=== PATIENT | male | born 1940 | race Caucasian/White ===

== ENCOUNTER → 2017-12-25 | Outpatient (CLI) | payer OTHER | END | disposition home or self-care (01) | LOC: SHCH 11:18 | PROVIDERS: ATTEND Internal Medicine Cardiovascular Disease | DX: I48.0 Paroxysmal atrial fibrillation (principal); I10 Essential (primary) hypertension | CPT/HCPCS: 93306 ==

== ENCOUNTER 2018-02-25 06:48 | Observation (INO) | payer OTHER ==
[2018-02-17 09:30] VITALS: BP 100/58
[2018-02-17 09:54] LABS: BASOPHILS % (AUTO) 1.1 % (0.0-5.0); EOSINOPHILS % (AUTO) 5.7 % (0.0-8.0); HEMATOCRIT 36.5 % (42-54); LYMPHOCYTES % (AUTO) 43.3 % (21.0-51.0); MEAN CORPUSCULAR HEMOGLOBIN 31.2 pg (27.0-33.0); MEAN CORPUSCULAR HGB CONC 33.9 g/dL (32.0-36.0); MEAN CORPUSCULAR VOLUME 92.1 fL (79-99); MONOCYTES % (AUTO) 7.6 % (3.0-13.0); NEUTROPHILS % (AUTO) 42.3 % (40.0-77.0); PLATELET COUNT (AUTO) 192 K/uL (130-400); RED BLOOD CELL COUNT(AUTO) 3.97 MIL/uL (4.50-6.20); RED CELL DISTRIBUTION WIDTH 13.5 % (11.0-15.5); WHITE BLOOD COUNT (AUTO) 6.8 K/uL (4.8-10.8)
[2018-02-17 10:00] LABS: CREATININE 1.1 mg/dL (0.5-1.5)
[2018-02-17 10:21] LABS: INR 0.96 (0.85-1.15); PARTIAL THROMBOPLASTIN TIME 27.3 SEC (26.3-35.5); PROTHROMBIN TIME 10.1 SEC (9.6-11.6)
[~2018-02-25] VITALS: Ht 175.3 cm; Wt 91.2 kg
[2018-02-25] VITALS (11 sets, daily range): BP systolic 89–112; BP diastolic 50–75
[~2018-02-25 06:48] MED LIST: APIX5TAB PO; ATOR40TA71 PO; DIGO125T87 PO; FINA5TAB41 PO; FURO40TA5 PO; METO50TA18 PO; OMEP20CA10 PO; POTA-79 PO; SACU1TAB PO; UBID300C PO
[2018-02-25] MEDS ORDERED: SODIUM CHLORIDE 0.9% 1000ML 1,000 ML IV ONE (07:15)
[2018-02-25] MEDS ORDERED: BUPIVACAINE/PF 0.25% 30ML VIAL IJ ONE (08:01)
[2018-02-25] MEDS ORDERED: LIDOCAINE HCL 1% MDV 50ML VIAL ONE (08:01)
[2018-02-25] MEDS ORDERED: CEFAZOLIN SODIUM 1 GM VIAL ONE (08:02)
[2018-02-25] MEDS ORDERED: MEPERIDINE-PF 25 MG/ML SYG ONE ×3 (08:26→09:16)
[2018-02-25] MEDS ORDERED: MIDAZOLAM HCL 1 MG/ML 2ML VIAL ONE ×3 (08:26→09:16)
[2018-02-25] MEDS ORDERED: IODIXANOL 320 MG/ML 100 ML VIAL ONE (08:31)
[2018-02-25] MEDS ORDERED: ACETAMINOPHEN-CODEINE 300/30MG TAB PO PRN ×2 (11:00)
[2018-02-25] MEDS ORDERED: ACETAMINOPHEN 325 MG TAB PO PRN (11:00)
[2018-02-25] MEDS: METOPROLOL TARTRATE 50 MG TAB PO SCH (19:59)
[2018-02-25] MEDS ORDERED: DIGOXIN 125 MCG TABLET PO SCH (21:00)
[2018-02-25] MEDS ORDERED: PANTOPRAZOLE SODIUM 40 MG TABLET.DR PO SCH (21:00)
[2018-02-25] MEDS ORDERED: **HM** ENTRESTO 24-26MG PO SCH (21:00)
[2018-02-25] MEDS ORDERED: ATORVASTATIN CALCIUM 40 MG TABLET PO SCH (21:00)
[2018-02-26 07:40] VITALS: BP 129/63
[2018-02-26] MEDS ORDERED: FINASTERIDE 5 MG TABLET PO SCH (09:00)
[2018-02-26] MEDS ORDERED: FUROSEMIDE 40 MG TABLET PO SCH (09:00)
[2018-02-26] MEDS ORDERED: POTASSIUM CHLORIDE 20 MEQ ERTAB PO SCH (09:00)
[2018-02-26] MEDS: METOPROLOL TARTRATE 50 MG TAB PO SCH (10:13)
[2018-02-26 11:34] VITALS: BP 120/66
== END 2018-02-26 12:15 | disposition home or self-care (01) ==
LOC: DAH 06:48 → DAHIP 06:49 → 2AH 11:28
PROVIDERS: ADMIT Internal Medicine Cardiovascular Disease; ATTEND Internal Medicine Cardiovascular Disease
DX: I50.22 Chronic systolic (congestive) heart failure (principal); I48.91 Unspecified atrial fibrillation; I48.92 Unspecified atrial flutter; I42.9 Cardiomyopathy, unspecified; E78.5 Hyperlipidemia, unspecified; I49.5 Sick sinus syndrome; Z87.891 Personal history of nicotine dependence; Z82.49 Family history of ischemic heart disease and other diseases of the circulatory system; Z79.899 Other long term (current) drug therapy
CPT/HCPCS: 33225; 33233; 33249; 36415; 71045; 80048; 85025; 85610; 85730; 93005; A4606; C1769; C1882; C1895; C1900; G0378 ×29; J0690; J2175 ×3; J2250 ×3; J3490 ×2; J7030; Q9967; 99156; 99157

== ENCOUNTER 2018-03-26 08:44 | Day surgery (SDC) | payer OTHER ==
[2018-03-24 10:12] LABS: HEMATOCRIT 36.9 % (42-54); MEAN CORPUSCULAR HEMOGLOBIN 31.4 pg (27.0-33.0); MEAN CORPUSCULAR HGB CONC 34.2 g/dL (32.0-36.0); MEAN CORPUSCULAR VOLUME 91.9 fL (79-99); PLATELET COUNT (AUTO) 149 K/uL (130-400); RED BLOOD CELL COUNT(AUTO) 4.01 MIL/uL (4.50-6.20); RED CELL DISTRIBUTION WIDTH 13.5 % (11.0-15.5); WHITE BLOOD COUNT (AUTO) 8.9 K/uL (4.8-10.8)
[2018-03-24 10:13] LABS: BASOPHILS % (AUTO) 0.9 % (0.0-5.0); EOSINOPHILS % (AUTO) 5.1 % (0.0-8.0); LYMPHOCYTES % (AUTO) 30.4 % (21.0-51.0); MONOCYTES % (AUTO) 8.2 % (3.0-13.0); NEUTROPHILS % (AUTO) 55.4 % (40.0-77.0)
[2018-03-24 10:16] VITALS: BP 115/60
[2018-03-24 10:23] LABS: CREATININE 0.9 mg/dL (0.5-1.5); POTASSIUM 3.5 mmol/L (3.5-5.1)
[2018-03-24 10:25] LABS: INR 0.97 (0.85-1.15); PARTIAL THROMBOPLASTIN TIME 28.2 SEC (26.3-35.5); PROTHROMBIN TIME 10.2 SEC (9.6-11.6)
[~2018-03-26] VITALS: Ht 175.3 cm; Wt 92.2 kg
[2018-03-26] VITALS (9 sets, daily range): BP systolic 99–127; BP diastolic 68–84
[~2018-03-26 08:44] MED LIST changes: +SODIUM CHLORIDE 0.9% 1000ML 1,000 ML IV SCH
[2018-03-26] MEDS ORDERED: MEPERIDINE-PF 25 MG/ML SYG ONE ×2 (11:57→12:17)
[2018-03-26] MEDS ORDERED: MIDAZOLAM HCL 1 MG/ML 2ML VIAL ONE ×2 (11:57→12:16)
[2018-03-26] MEDS ORDERED: LIDOCAINE HCL 2% 20ML ONE (11:57)
== END 2018-03-26 16:20 | disposition home or self-care (01) ==
LOC: DAH 08:44
PROVIDERS: ATTEND Internal Medicine Cardiovascular Disease
DX: I48.2 Chronic atrial fibrillation (principal); Z87.891 Personal history of nicotine dependence; Z79.899 Other long term (current) drug therapy; Z98.890 Other specified postprocedural states; R00.0 Tachycardia, unspecified; E78.5 Hyperlipidemia, unspecified; I48.92 Unspecified atrial flutter; I50.22 Chronic systolic (congestive) heart failure; I44.7 Left bundle-branch block, unspecified
CPT/HCPCS: 36415; 80048; 85025; 85610; 85730; 93005; 93650; A4606; A4649; C1733; C1894; J1644; J2175 ×2; J2250 ×2; J3490; J7030; 99156; 99157

== ENCOUNTER 2019-01-04 07:15 | Day surgery (SDC) | payer OTHER ==
[2018-12-31 08:42] LABS: BASOPHILS % (AUTO) 0.9 % (0.0-5.0); EOSINOPHILS % (AUTO) 3.9 % (0.0-8.0); HEMATOCRIT 34.4 % (42-54); LYMPHOCYTES % (AUTO) 47.1 % (21.0-51.0); MEAN CORPUSCULAR HEMOGLOBIN 31.8 pg (27.0-33.0); MEAN CORPUSCULAR HGB CONC 34.5 g/dL (32.0-36.0); MEAN CORPUSCULAR VOLUME 92.2 fL (79-99); MONOCYTES % (AUTO) 5.1 % (3.0-13.0); NUCLEATED RED BLOOD CELLS 0.1 % (0.0-0.19); PLATELET COUNT (AUTO) 175 K/uL (130-400); RED BLOOD CELL COUNT(AUTO) 3.72 MIL/uL (4.50-6.20); RED CELL DISTRIBUTION WIDTH 13.2 % (11.0-15.5); WHITE BLOOD COUNT (AUTO) 6.8 K/uL (4.8-10.8)
[2018-12-31 08:45] LABS: APPEARANCE,URINE Clear (CLEAR); BILIRUBIN,URINE Negative (NEGATIVE); COLOR,URINE Dark Yellow (YELLOW); GLUCOSE, URINE (UA) Negative (NEGATIVE); KETONES,URINE Trace mg/dL (NEGATIVE); LEUKOCYTE ESTERASE ,URINE Moderate (NEGATIVE); NITRATE,URINE Negative (NEGATIVE); OCCULT BLOOD,URINE Negative (NEGATIVE); PH,URINE 5.5 (5.0-8.0); PROTEIN,URINE Negative (NEGATIVE)
[2018-12-31 08:49] LABS: CREATININE 1.1 mg/dL (0.5-1.5); POTASSIUM 3.9 mmol/L (3.5-5.1)
[2018-12-31 08:53] LABS: INR 0.98 (0.85-1.15); PARTIAL THROMBOPLASTIN TIME 27.6 SEC (26.3-35.5); PROTHROMBIN TIME 10.3 SEC (9.6-11.6)
[2018-12-31 08:59] VITALS: BP 103/59
--- NOTE | 2018-12-31 09:00 | NUR ---
DIANDRA CALLED DAVIDE LAZARO AND INFORMED HIM THAT PATIENT IS TAKING ELIQUIS. PER IVETH, HAVE PATIENT STOP ELIQUIS 2 DAYS BEFORE THE PROCEDURE. 09 INSTRUCTED PATIENT TO HOLD ELIQUIS TWO DAYS BEFORE SURGERY.
[2018-12-31 09:01] LABS: BACTERIA,URINE Rare /HPF (None Seen); MUCUS,URINE Few LPF (None Seen); RBC,URINE 0-1 /HPF (0-1); SQUAMOUS EPITHELIAL CELL,UR Few /HPF (0-2)
--- NOTE | 2019-01-01 10:45 | NUR ---
ABNORMAL LABS ABNORMAL UA MOD LEUKEST, NEGATIVE NITRATES, UWBC 6-10, H/H 11.9/34.4 REPORTED TO DAVIDE MCGHEE. NO FURTHER ORDERS GIVEN, MAY PROCEED WITH PLANNED PROCEDURE.
--- NOTE | 2019-01-01 11:36 | NUR ---
CLARIFICATION CALLED [facility] TO CLARIFY PLAN ON H&P THAT STATES RHC, CHECK AICD. ORDER DOES NOT STATE CHECK AICD. PER DR. MARISOL GREGORIO STAFF, AICD WILL BE CHECKED AT THE OFFICE, PT HAS AN APPT IN JANUARY FOR THAT.
[~2019-01-04] VITALS: Ht 176.5 cm; Wt 93.0 kg
[2019-01-04] VITALS (10 sets, daily range): BP systolic 107–123; BP diastolic 65–83
[~2019-01-04 07:15] MED LIST changes: +ASCO10007 PO; +ATOR40TA69 PO; -ATOR40TA71 PO; +CHOL400C9 PO; +CINNAMON CHROMIUM PO; +FOLI-74 PO; +MEGA RED KRILL OIL PO; +OMEP-50 PO; -OMEP20CA10 PO; -SODIUM CHLORIDE 0.9% 1000ML 1,000 ML IV SCH; +VITA1TAB22 PO
--- NOTE | 2019-01-04 07:23 | NUR ---
PRE-PROCEDURE RECEIVED FROM HOME VIA AMBULATING FOR SCHEDULED RHC TO DAY 15 ACCOMPANIED BY . AWAKE IN NO ACUTE DISTRESS. DENIES PAIN. CONNECTED TO CONTINUOUS CARDIOPULMONARY MONITORING. SIDE RAILS UP X2, BED IN LOWEST POSITION, AND CALL LIGHT W/IN REACH.
[2019-01-04] MEDS ORDERED: SODIUM CHLORIDE 0.9% 1000ML 1,000 ML IV ONE (08:15)
[2019-01-04] MEDS ORDERED: LIDOCAINE HCL 2% 20ML ONE (10:58)
--- NOTE | 2019-01-04 11:07 | NUR ---
PROCEDURE TRANSFERRED TO SECURITY SYSTEMS SPECIALIST VIA BED BY CINDI SPARROW RN. AWAKE IN NO ACUTE DISTRESS.
[2019-01-04] MEDS ORDERED: IOHEXOL-350 50ML VIAL IV ONE (11:31)
--- NOTE | 2019-01-04 12:20 | NUR ---
TOBI PT HERE WITH SCLEROSCOPE TESTER STAFF YUE REGAN. PT INSTRUCTED ON IMPORTANCE OF NOT MOVING RIGHT LEG OR LIFTING HEAD UP OFF OF BED. VERBALIZED UNDERSTANDING. OFFERED URINAL BECAUSE OF BEDREST. BOTH PT AND VERBALIZED UNDERSTANDING. DRSG TO RIGHT GROIN SOFT TO TOUCH. NO BLEEDING, OOZING NOTED TO SITE.
--- NOTE | 2019-01-04 13:51 | NUR ---
DR. MARISOL DAMON HERE TO SPEAK TO PT. INSTRUCTED PT TO STOP TAKING POTASSIUM WELL LASIX. PT AND VERBALIZED UNDERSTANDING.
--- NOTE | 2019-01-04 16:15 | NUR ---
DISCHARGE ORAL AND WRITTEN DISCHARGE INSTRUCTIONS GIVEN TO PT AND PTS ALONG WITH INSTRUCTIONS ON MEDICATION CHANGES. BOTH VERBALIZED UNDERSTANDING. SITE TO RIGHT GROIN SOFT TO TOUCH. NO BLEEDING, OOZING NOTED. NO OTHER QUESTIONS AT THIS TIME.
== END 2019-01-04 16:25 | disposition home or self-care (01) ==
LOC: DAH 07:15
PROVIDERS: ATTEND Internal Medicine Cardiovascular Disease
DX: I50.22 Chronic systolic (congestive) heart failure (principal); I48.91 Unspecified atrial fibrillation; M19.042 Primary osteoarthritis, left hand; M19.041 Primary osteoarthritis, right hand; E78.5 Hyperlipidemia, unspecified; Z79.01 Long term (current) use of anticoagulants; Z79.899 Other long term (current) drug therapy; Z95.0 Presence of cardiac pacemaker; Z98.890 Other specified postprocedural states; Z87.891 Personal history of nicotine dependence; Z72.89 Other problems related to lifestyle; Z82.49 Family history of ischemic heart disease and other diseases of the circulatory system
CPT/HCPCS: 36415; 71045; 80048; 81001; 85025; 85610; 85730; 93005; 93451; A4215; A4216; A4221; A4222; A4223 ×3; A4606; C1894 ×2; J1644; J3490; J7030; Q9967

== ENCOUNTER → 2019-02-23 | Outpatient (CLI) | payer OTHER ==
[~2019-02-23] MED LIST changes: -FURO40TA5 PO; -POTA-79 PO
== END | disposition home or self-care (01) ==
LOC: SHCH 11:07
PROVIDERS: ATTEND Internal Medicine Cardiovascular Disease
DX: I50.22 Chronic systolic (congestive) heart failure (principal)
CPT/HCPCS: 93306

== ENCOUNTER → 2019-02-25 | Outpatient (CLI) | payer OTHER ==
[~2019-02-25] MED LIST changes: +IOHEXOL-350 50ML VIAL IV ONE
== END | disposition home or self-care (01) ==
LOC: RAH 08:58
PROVIDERS: ATTEND Urology
DX: N35.919 Unspecified urethral stricture, male, unspecified site (principal); N32.89 Other specified disorders of bladder; M19.042 Primary osteoarthritis, left hand; M19.041 Primary osteoarthritis, right hand; I50.9 Heart failure, unspecified; Z79.899 Other long term (current) drug therapy; Z87.891 Personal history of nicotine dependence; Z72.89 Other problems related to lifestyle; Z82.49 Family history of ischemic heart disease and other diseases of the circulatory system
CPT/HCPCS: 51610; 74455; Q9967

== ENCOUNTER 2021-11-09 08:57 | Emergency (ER) | payer OTHER ==
[~2021-11-09] VITALS: Ht 172.7 cm; Wt 89.8 kg
[~2021-11-09 08:57] MED LIST changes: +ASCO100031 PO; -ASCO10007 PO; +DIGO125T71 PO; -DIGO125T87 PO; -IOHEXOL-350 50ML VIAL IV ONE; -OMEP-50 PO; +OMEP20CA12 PO
[2021-11-09 09:16] VITALS: BP 118/79
[2021-11-09 09:42] LABS: APPEARANCE,URINE CLEAR (CLEAR); BILIRUBIN,URINE NEGATIVE (NEGATIVE); COLOR,URINE YELLOW (YELLOW); GLUCOSE, URINE (UA) NEGATIVE (NEGATIVE); KETONES,URINE NEGATIVE (NEGATIVE); LEUKOCYTE ESTERASE ,URINE SMALL (NEGATIVE); NITRATE,URINE NEGATIVE (NEGATIVE); OCCULT BLOOD,URINE TRACE-INTACT (NEGATIVE); PH,URINE 5.5 (5.0-8.0); PROTEIN,URINE NEGATIVE (NEGATIVE); UROBILINOGEN,URINE 0.2 mg/dL (0.2-1.0)
[2021-11-09 10:27] LABS: BACTERIA,URINE Few /HPF (None Seen); RBC,URINE 0-1 /HPF (0-1); SQUAMOUS EPITHELIAL CELL,UR 0-2 /HPF (0-2)
[2021-11-09] MEDS ORDERED: CEPH500B PO (11:42)
[2021-11-09] MEDS ORDERED: NAPR375T6 PO (11:42)
[2021-11-15] MEDS ORDERED: AMOX1TAB16 PO (11:09)
[2021-11-15] MEDS ORDERED: CEFU500T67 PO (11:09)
[2021-11-15] MEDS ORDERED: CARB1DRO39 OP (11:09)
== END 2021-11-09 12:00 | disposition home or self-care (01) ==
LOC: EDH 08:57
DX: N45.1 Epididymitis (principal); K40.90 Unilateral inguinal hernia, without obstruction or gangrene, not specified as recurrent; Z79.01 Long term (current) use of anticoagulants; Z95.0 Presence of cardiac pacemaker
CPT/HCPCS: 76870; 81001; 87077; 87088; 87186

== ENCOUNTER 2023-11-15 15:14 | Emergency (ER) | payer OTHER ==
[~2023-11-15] VITALS: Ht 172.7 cm; Wt 81.6 kg
[~2023-11-15 15:14] MED LIST changes: +CARB1DRO39 OP; +NAPR375T6 PO; -UBID300C PO; +UBID300C3 PO; +VITA-427 PO; -VITA1TAB22 PO
[2023-11-15 19:44] VITALS: BP 126/71; PULSE 85; RESP 16; O2SAT 99
[2023-11-15] MEDS: LIDOCAINE 4% ADH..PATCH TP ONE (20:21)
[2023-11-15] MEDS ORDERED: LIDO-15 TP (20:21)
== END 2023-11-15 20:32 | disposition home or self-care (01) ==
LOC: EDH 15:14
DX: S41.102A Unspecified open wound of left upper arm, initial encounter (principal); R07.81 Pleurodynia; Z95.0 Presence of cardiac pacemaker; Z98.890 Other specified postprocedural states; Z79.899 Other long term (current) drug therapy; W01.0XXA Fall on same level from slipping, tripping and stumbling without subsequent striking against object, initial encounter; Y93.89 Activity, other specified; Y92.89 Other specified places as the place of occurrence of the external cause; Y99.8 Other external cause status
CPT/HCPCS: 71045; 71100

== ENCOUNTER 2024-12-29 05:48 | Day surgery (SDC) | payer OTHER ==
[2024-12-27 09:20] LABS: IMMATURE GRANULOCYTE ABSOLUTE 0.03 K/uL (0-1); NUCLEATED RED BLOOD CELLS 0.0 % (0.0-0.19); PLATELET COUNT (AUTO) 168 K/uL (130-400); RED BLOOD CELL COUNT(AUTO) 3.65 MIL/uL (4.50-6.20); RED CELL DISTRIBUTION WIDTH 13.4 % (11.0-15.5); WHITE BLOOD COUNT (AUTO) 10.1 K/uL (4.8-10.8)
[2024-12-27 09:30] LABS: CREATININE 1.0 mg/dL (0.5-1.3); GLOMERULAR FILTR. RATE CALC 75.0 mL/min (>90); GLUCOSE,RANDOM 106.0 mg/dL (70-105); INR 1.14 (0.85-1.15); SODIUM SERUM 139.0 mmol/L (136-145); UREA NITROGEN, BLOOD 22.0 mg/dL (7-18)
[2024-12-27 09:48] VITALS: BP 117/63; PULSE 97; RESP 18; TEMP 97.7
--- NOTE | 2024-12-27 10:45 | EKG ---
[facility] Test Date: 2024-12-27 Test Time: 09:07:27 Pat Name: JESSIE GÓMEZ Department: [facility] Room: Gender: M [employer] Former: [id number] : 1940 Requested By: ERIC BRADSHAW Order Number: [id number] Reading MD: Dedrick Barboza Measurements Intervals [place] Rate: 70 P: 0 HI: 134 QRS: 231 QRSD: 121 T: 44 QT: 411 QTc: 443 Interpretive Statements Ventricular-paced rhythm Biventricular paced rhythm Compared to ECG 12/31/2018 08:14:36 No significant changes Electronically Signed On 12-28-2024 07:26:29 CDT by Dedrick Barboza Please click the below link to view image of tracing.
[2024-12-27 12:06] LABS: EOSINOPHILS % (MANUAL) 6 % (1-6); LYMPHOCYTES % (MANUAL) 45 % (22-44); MONOCYTES % (MANUAL) 9 % (2-9); REACTIVE LYMPHOCYTES 3 % (0-0); SEGMENTED NEUTROPHILS % 37 % (40-70)
[2024-12-27 12:08] LABS: MAN.DIFF COMMENT-IMPRESSION MANUAL DIFFERENTIAL; PLATELET MORPHOLOGY COMMENT ADEQUATE; WBC MORPHOLOGY REACTIVE LYMPHS 1+
--- NOTE | 2024-12-28 15:04 | NUR ---
report dr orosco reviewed cbc. ok to proceed.
[~2024-12-29] VITALS: Ht 170.2 cm; Wt 74.2 kg
[2024-12-29] VITALS (7 sets, daily range): BP systolic 113–129; BP diastolic 64–78; PULSE 63–70; RESP 13–15; TEMP 97.2–97.6
[~2024-12-29 05:48] MED LIST changes: -ASCO100031 PO; +ASCO10004 PO; -CARB1DRO39 OP; -CHOL400C9 PO; -CINNAMON CHROMIUM PO; +METO-408 PO; -METO50TA18 PO; -NAPR375T6 PO; +OXYB5TAB20 PO; -SACU1TAB PO; +UBID100C10 PO; -UBID300C3 PO; +VIT1CAPS47 PO; -VITA-427 PO; +vitamin b12 PO; +vitamin d3 PO
[2024-12-29] MEDS ORDERED: LIDOCAINE HCL 1% MDV 50ML VIAL ONE (07:09)
[2024-12-29] MEDS ORDERED: SODIUM BICARB 50MEQ 50ML VIAL 50 ML ONE (07:09)
[2024-12-29] MEDS ORDERED: MIDAZOLAM HCL 1 MG/ML 2ML VIAL ONE ×3 (07:21→08:26)
[2024-12-29] MEDS ORDERED: BACITRACIN 1 EACH PACKET TP ONE (08:52)
[2024-12-29] MEDS ORDERED: TRAM50TA4 PO (09:05)
--- NOTE | 2024-12-29 09:27 | NUR ---
PT ARRIVED TO DAY # 7 VSS NAD PRESSURE DRESSING TO LEFT CHEST. PT STATES SOME PAIN TO LEFT ARM AFTER PROCEDURE PILLOWS PLACED PT STATES THIS DID HELP WITH DISCOMFORT
--- NOTE | 2024-12-29 09:48 | NUR ---
SPOKE WITH PATIENTS S[facility] WILL RECORDS AND [facility] [address] [facility] [facility]
--- NOTE | 2024-12-29 11:20 | NUR ---
PT STATED HE WOULD LIKE SOME PAIN MEDICATION BEFORE LEAVING HOME WITH SON. PRESSURE DRESSING REMOVED FROM LEFT CHEST SCANT AMOUNT OF BLOOD NOTED TO DRESSING.
--- NOTE | 2024-12-29 11:30 | NUR ---
BOTH PT AND SON GIVEN VERBAL AND WRITTEN DISCHARGE INSTRUCTIONS IV REMOVED SITE ASYMPTOMATIC. PT TAKEN OUT VIA WHEELCHAIR SON DRIVING.
== END 2024-12-29 11:45 | disposition home or self-care (01) ==
LOC: DAH 05:48
PROVIDERS: ATTEND Internal Medicine Cardiovascular Disease
DX: Z45.02 Encounter for adjustment and management of automatic implantable cardiac defibrillator (principal); I48.21 Permanent atrial fibrillation; I50.22 Chronic systolic (congestive) heart failure; I48.92 Unspecified atrial flutter; E78.2 Mixed hyperlipidemia; Z82.49 Family history of ischemic heart disease and other diseases of the circulatory system; Z88.8 Allergy status to other drugs, medicaments and biological substances; Z79.01 Long term (current) use of anticoagulants; Z79.899 Other long term (current) drug therapy; Z98.890 Other specified postprocedural states; Z98.49 Cataract extraction status, unspecified eye
CPT/HCPCS: 80048; 85025; 85610; 85730; 36415; 93005; 33264; 33223; 99156; 99157 ×5; C1882; J3010 ×3; J0690 ×2; J0665; J3490 ×2; J2250 ×3; A4215; A6251; A4222; A4221; A4663; A4216; A6258; A4606; A4223 ×3

== ENCOUNTER → 2025-01-11 | Outpatient (CLI) | payer OTHER ==
[~2025-01-11] MED LIST changes: +TRAM50TA4 PO
--- NOTE | 2025-01-11 18:13 | HMCIMG ---
EXAM: XR Chest, 2 View. CLINICAL HISTORY: 84-year-old male with ICD, left-sided cardiac pacemaker. COMPARISON: XR Chest from 11/15/2023. FINDINGS: LUNGS: The lungs are clear. No consolidation. PLEURAL SPACES: No pleural effusion or pneumothorax. HEART: The heart size is normal. BONES: No acute osseous abnormality. IMPRESSION: 1. No acute findings. /[place]
== END | disposition home or self-care (01) ==
LOC: RAH 09:19
PROVIDERS: ATTEND Internal Medicine Cardiovascular Disease
DX: T82.110A Breakdown (mechanical) of cardiac electrode, initial encounter (principal); Z95.0 Presence of cardiac pacemaker; X58.XXXA Exposure to other specified factors, initial encounter; Y93.89 Activity, other specified; Y92.89 Other specified places as the place of occurrence of the external cause; Y99.8 Other external cause status
CPT/HCPCS: 71046

== ENCOUNTER 2025-03-18 15:58 | Inpatient (IN) | payer OTHER ==
[~2025-03-18] VITALS: Ht 172.7 cm; Wt 79.2 kg
--- NOTE | 2025-03-18 16:56 | NUR ---
PATIENT IN ROOM
[2025-03-18 17:07] LABS: IMMATURE GRANULOCYTE ABSOLUTE 0.04 K/uL (0-1); NUCLEATED RED BLOOD CELLS 0.0 % (0.0-0.19); PLATELET COUNT (AUTO) 192 K/uL (130-400); RED BLOOD CELL COUNT(AUTO) 3.30 MIL/uL (4.50-6.20); RED CELL DISTRIBUTION WIDTH 14.2 % (11.0-15.5); WHITE BLOOD COUNT (AUTO) 11.8 K/uL (4.8-10.8)
[2025-03-18 17:15] LABS: CREATININE 0.9 mg/dL (0.5-1.3); GLOMERULAR FILTR. RATE CALC 85.0 mL/min (>90); GLUCOSE,RANDOM 157.0 mg/dL (70-105); SODIUM SERUM 143.0 mmol/L (136-145); UREA NITROGEN, BLOOD 21.0 mg/dL (7-18)
[2025-03-18 17:41] LABS: APPEARANCE,URINE TURBID (CLEAR); GLUCOSE, URINE (UA) NEGATIVE (NEGATIVE); LEUKOCYTE ESTERASE ,URINE 500 Leu/uL (NEGATIVE); NITRATE,URINE NEGATIVE (NEGATIVE); OCCULT BLOOD,URINE MODERATE (NEGATIVE)
[2025-03-18 17:45] LABS: ADD UA MICROSCOPIC YES
[2025-03-18 17:47] LABS: UNCLASSIFIED CRYSTAL 3 /HPF (None Seen); WBC CLUMP MANY /HPF (0-1); YEAST,URINE BUDDING FEW /HPF (None Seen)
--- NOTE | 2025-03-18 17:52 | ERN ---
General Chief Complaint: UTI without Fever Stated Complaint: RECURRENT UTI Time Seen by MD: 16:00 Source: patient History of Present Illness Initial Comments Patient is a an 84-year-old gentleman coming in with a dysuria. Per patient he was recently treated with the antibiotics for another urinary tract infection but he believes that the infection has been never really gone away. Patient is here for further evaluation. Allergies: Coded Allergies: No Known Drug Allergies (Verified Allergy, 05/26/13) Home Meds Active Scripts Ferrous Sulfate (Ferrous Sulfate) 325 Mg (65 Mg Iron) Tablet, 1 TAB PO QODAY for 30 Days, #30 TAB 0 Refills Prov:ZAY ANGULO MD 02/17/25 Reported Medications Metoprolol Succinate (Metoprolol Succinate) 25 Mg Tab.er.24h, 25 MG PO AM, TAB 12/27/24 Oxybutynin Chloride (Oxybutynin Chloride) 5 Mg Tablet, 5 MG PO BID, TAB 12/27/24 Atorvastatin Calcium (LIPITOR) 40 Mg Tablet, 40 MG PO HS, TAB 12/31/18 Apixaban (Eliquis) 5 Mg Tablet, 5 MG PO BID, TAB 02/17/18 Omeprazole (Omeprazole) 20 Mg Capsule.dr, 20 MG PO AM, CAP 02/17/18 Digoxin (Digoxin) 125 Mcg Tablet, 125 MCG PO HS, TAB 02/17/18 Past Medical History Past Medical History: Arrythmia, Heart Disease Past Surgical History: Pacer/AICD Surgical History Other: HAND SURGERY, HERNIA REPAIR ROS Dictation CONSTITUTIONAL: No chills, no fever, no weakness, no diaphoresis, no malaise. HEAD/FACE: No signs of trauma. EENT: No eye pain, no blurred vision, no tearing, no double vision, no ear pain, no ear discharge, no nose pain, no nasal congestion, no throat pain, no throat swelling, no mouth pain. RESPIRATORY: No cough, no orthopnea, no SOB, no stridor, no wheezing. CARDIOVASCULAR: No chest pain, no edema, no palpitations, no syncope. GASTROINTESTINAL/ABDOMINAL: No abdominal pain, no constipation, no diarrhea, no nausea, no vomiting. GENITOURINARY: No abnormal discharge, no dysuria, no frequent urination, no hematuria. No complaints of pain in the genitals. MUSCULOSKELETAL: No back pain, no gout, no joint pain, no joint swelling, no muscle pain, no muscle stiffness, no neck pain. INTEGUMENTARY: No change in color, no change in hair/nails, no dryness, no lesion, no lumps, no rash. NEUROLOGICAL/PSYCH: No anxiety, not depressed, no emotional problem, no headac he, no numbness, no pre-existing deficit, no history of seizures, no tremors, no weakness. HEMATOLOGIC/LYMPHATIC: Not anemic, no history of blood clots, no apparent bleeding, no bruising, glands not swollen. All Systems Negative, Except as Noted. Physical Exam Physical Exam Dictation VITAL SIGNS: Reviewed. GENERAL APPEARANCE: Alert, oriented x3, no acute distress, obese. HEAD AND FACE: Non-traumatic. EYES: PERRL, pink conjunctivas, eyelid no trauma, anterior chamber clear. EARS: Pinnas intact and no signs of trauma or erythema. Ear canals clear and no discharge. TMs no erythema. NOSE: No discharge, no bleeding. OROPHARYNX: Mouth normal, teeth no caries, tongue pink. Pharynx clear, no erythema. Tonsils no exudates, no abscesses noted. Mucous membrane moist. NECK: Supple, non-tender, no thyromegaly, no masses, no JVD, no bruits. BREAST: Deferred. CHEST: No tenderness, no crepitus, no paradoxical movement, no retractions. LUNGS: Clear, well-ventilated, symmetric, no rales, no wheezing, no rhonchi, no stridor, good breath sounds bilaterally. HEART: Regular rate, regular rhythm, no murmur, no gallops. VASCULAR: No peripheral edema. ABDOMEN: Soft, positive bowel sounds, nondistended, no guarding, nontender, no rebound, no masses no hepatomegaly, no splenomegaly, no Pompa's sign, no hernias. RECTAL: Deferred. GENITAL: Deferred. NEUROLOGICAL: Normal speech, gross motor function intact, gross sensory function intact. MUSCULOSKELETAL: Neck nontender, full range of motion, back nontender, full range of motion. EXTREMITIES: Nontender, full range of motion. SKIN: Color pink, dry, no turgor, no rash, no lacerations, no abrasions, no contusions. LYMPHATICS: Deferred. Results Laboratory and Microbiology Lab and Micro Result Laboratory Tests Test 03/18/25 16:48 03/18/25 17:22 White Blood Count 11.8 K/uL (4.8-10.8) H Red Blood Count 3.30 MIL/uL (4.50-6.20) L Hemoglobin 9.7 g/dL (14.0-18.0) L Hematocrit 30.2 % (42-54) L Mean Corpuscular Volume 91.5 fL (79-99) Mean Corpuscular Hemoglobin 29.4 pg (27.0-33.0) Mean Corpuscular Hemoglobin Concent 32.1 g/dL (32.0-36.0) Red Cell Distribution Width 14.2 % (11.0-15.5) Platelet Count 192 K/uL (130-400) Mean Platelet Volume 10.0 fL (7.5-10.5) Immature Granulocyte % (Auto) 0.3 % (0-1) Neutrophils (%) (Auto) 38.1 % (40.0-77.0) L Lymphocytes (%) (Auto) 51.3 % (21.0-51.0) H Monocytes (%) (Auto) 5.2 % (3.0-13.0) Eosinophils (%) (Auto) 4.3 % (0.0-8.0) Basophils (%) (Auto) 0.8 % (0.0-5.0) Neutrophils # (Auto) 4.5 K/uL (1.8-7.7) Lymphocytes # (Auto) 6.1 K/uL (1.0-4.8) H Monocytes # (Auto) 0.6 K/uL (0.1-1.0) Eosinophils # (Auto) 0.51 K/uL (0.00-0.70) Basophils # (Auto) 0.10 K/uL (0.00-0.20) Absolute Immature Granulocyte (auto 0.04 K/uL (0-1) Nucleated Red Blood Cells 0.0 % (0.0-0.19) Sodium Level 143 mmol/L (136-145) Potassium Level 3.6 mmol/L (3.5-5.1) Chloride Level 108 mmol/L (101-111) Carbon Dioxide Level 28 mmol/L (21-32) Blood Urea Nitrogen 21 mg/dL (7-18) H Creatinine 0.9 mg/dL (0.5-1.3) Glomerular Filtration Rate Calc 85 mL/min (>90) Random Glucose 157 mg/dL (70-105) H Total Calcium 8.6 mg/dL (8.5-10.1) Urine Color YELLOW (YELLOW) Urine Appearance TURBID (CLEAR) Urine pH 6.0 (5.0-8.0) Urine Specific [place] 1.020 (1.001-1.031) Urine Protein 100 mg/dL (NEGATIVE) H Urine Glucose (UA) NEGATIVE mg/dL (NEGATIVE) Urine Ketones NEGATIVE mg/dL (NEGATIVE) Urine Occult Blood MODERATE (NEGATIVE) H Urine Nitrate NEGATIVE (NEGATIVE) Urine Bilirubin NEGATIVE mg/dL (NEGATIVE) Urine Urobilinogen 0.2 mg/dL (0.2-1.0) Urine Leukocyte Esterase 500 [place]/uL (NEGATIVE) H Urine RBC 51-100 /HPF (0-1) H Urine WBC TNTC /HPF (0-1) H Urine WBC Clumps (Auto) MANY /HPF (0-1) Urine Other Crystals (Auto) 3 /HPF (None Seen) Urine Bacteria None /HPF (None Seen) Urine Yeast FEW /HPF (None Seen) Labs Reviewed?: Yes MDM MDM: Differential diagnosis: Recurrent urinary tract infection, failed outpatient therapy, urinary tract infection, Rationale: Tests considered and ordered secondary to shared decision making include: Previous outside records reviewed: Old ER visits. Risk of complication and/or morbidity or mortality of patient management: None Medications-Per medication reconciliation Need for hospitalization: Patient does meet criteria for hospitalization. Need for emergency major/minor surgery: No There are no social concerns with this patient. Prescription drug management Prescriptions will include symptomatic care Patient's prior external medical records from other ER visits were reviewed by me as indicated. Prior testing and results from previous visits were reviewed. Prior tests were taken into account with medical decision making and resource utilization, independent historian/historians were used to obtain complete medical history. I independently interpreted the test that were performed, results were reviewed by me and considered findings on radiology if ordered. Medical management and examination interpretation discussions were had by me with other qualified healthcare professionals as indicated for the patient's care. Patient is a 84-year-old gentleman coming in complaining of dysuria. Patient has a had multiple urinary tract infection which required IV antibiotics. Patient states that he just finished his last regimen of treatment for in his urinary tract infection but still feels urinary discomfort. Patient will be admitted under the care of [facility] for ongoing management. ED Course Orders Procedure Category Date Status Time Cbc With Differential LAB 03/18/25 In Process 16:20 Urinalysis Profile LAB 03/18/25 Complete 16:20 Basic Metabolic Panel LAB 03/18/25 Complete 16:20 Culture Urine NARINDER 03/18/25 In Process 17:45 Ceftriaxone 1g Vial PHA 03/18/25 Complete (Rocephine 1g Inj) 18:00 Current Medications Medications (Trade) Dose Ordered Sig/Rocael Route PRN Reason Start Time Stop Time Status Last Admin Dose Admin Ceftriaxone Sodium (ROCEphine 1G INJ) 1 gm ONCE ONCE IVPB 03/18/25 18:00 03/18/25 18:01 DC Vital Signs Date Time Temp Pulse Resp B/P (MAP) Pulse Ox O2 Delivery O2 Flow Rate FiO2 03/18/25 16:57 98.1 71 20 121/59 99 Room Air* 0 21 03/18/25 16:00 98.1 71 20 121/59 99 Room Air DX & DISP Disposition: Inpatient Decision to Admit Time: 18:04 Departure Impression: Primary Impression: Urinary tract infection due to ESBL Klebsiella Condition: Stable Referrals: ZOEY GRAVES MD (PCP) BIENVENIDO YUSUF MD Mar 18, 2025 17:52
[2025-03-18] MEDS ORDERED: guaiFENesin-DM 200/20MG 10ML PO PRN (20:00)
[2025-03-18] MEDS ORDERED: NITROGLYCERIN 0.4 MG SL TAB SL PRN (20:00)
[2025-03-18] MEDS ORDERED: LACTULOSE 20 GM/30 ML UDCUP PO PRN (20:00)
[2025-03-18] MEDS ORDERED: MAG/ALUM/SIMETH 30 ML UDCUP PO PRN (20:00)
[2025-03-18] MEDS ORDERED: GLUCAGON 1MG KIT 1 MG ML IM PRN (20:00)
[2025-03-18] MEDS ORDERED: DEXTROSE 50%-WATER 50 ML DISP.SYRIN IV PRN (20:00)
--- NOTE | 2025-03-18 20:08 | HP ---
[facility] HISTORY & PHYSICAL Date Patient Seen: Mar 18, 2025 Time of Visit: 20:00 Supervising Physician: DR.RODRIGUEZ KERNS Primary Care Physician: DR. ELY GREER Outpatient Specialists: [ ] Inpatient Consults: [ ] PROBLEM LIST: 1. ACUTE COMPLICATED CYSTITIS, FAILED OUTPATIENT TREATMENT 2. DIABETES TYPE 2 UNCONTROLLED CHIEF COMPLAINT: Dysuria HPI: Patient is a 84-year-old male with past medical history significant for diabetes type 2, BPH, atrial fibrillation on Eliquis, and a surgical history of AICD placement, right hand surgery, right inguinal hernia repair, presented to emergency department complaining of dysuria. Patient reports that she has been going frequently to the restroom and able to void small quantity of urine. Patient reports that the frequency of urination has been increased. In addition patient reports that she gets completed outpatient antibiotics for urinary tract infection with the Infectious Disease specialist . However, patient was not able to recall the name of antibiotic used. The review of the patient's chart shows that the patient was treated in the past for ESBL sensitive to ceftriaxone and Merrem. In the emergency department, patient received ceftriaxone1 g IV. In addition, Infectious Disease specialist has been consulted. Patient will be admitted to medical floor for further evaluation and treatment. PAST MEDICAL HX: see above PAST SURGICAL HX: noncontributory SOCIAL HISTORY: No tobacco, ETOH, or illicit drug use Coded Allergies: No Known Drug Allergies (Verified Allergy, 05/26/13) REVIEW OF SYSTEMS: 12 point ROS reviewed with patient. Pertinent positives mentioned above. Otherwise negative. PHYSICAL EXAM: GENERAL: alert, weak, awake oriented x 3 HEENT: EOMI, Sclera non icteric, moist mucosa NECK: Supple, no JVD, trachea midline LUNGS: Clear breath sounds bilaterally. No wheezes HEART: Regular rate and rhythm. Normal S1 and S2, without murmurs ABD: Abdomen soft, nontender. Bowel sounds present EXT: No clubbing cyanosis or edema NEURO: Alert and oriented to person, follows commands Vital Signs (last 8hr) Date Time Temp Pulse Resp B/P (MAP) Pulse Ox O2 Delivery O2 Flow Rate FiO2 03/18/25 18:55 98.1 70 18 114/63 96 Room Air* 0 21 03/18/25 18:10 98.1 80 16 105/58 98 Room Air* 0 21 03/18/25 16:57 98.1 71 20 121/59 99 Room Air* 0 21 03/18/25 16:00 98.1 71 20 121/59 99 Room Air LABS: Hematology Labs: Test 03/18/25 16:48 Range/Units White Blood Count 11.8 H 4.8-10.8 K/uL Red Blood Count 3.30 L 4.50-6.20 MIL/uL Hemoglobin 9.7 L 14.0-18.0 g/dL Hematocrit 30.2 L 42-54 % Mean Corpuscular Volume 91.5 79-99 fL Mean Corpuscular Hemoglobin 29.4 27.0-33.0 pg Mean Corpuscular Hemoglobin Concent 32.1 32.0-36.0 g/dL Red Cell Distribution Width 14.2 11.0-15.5 % Platelet Count 192 130-400 K/uL Mean Platelet Volume 10.0 7.5-10.5 fL Immature Granulocyte % (Auto) 0.3 0-1 % Neutrophils (%) (Auto) 38.1 L 40.0-77.0 % Lymphocytes (%) (Auto) 51.3 H 21.0-51.0 % Monocytes (%) (Auto) 5.2 3.0-13.0 % Eosinophils (%) (Auto) 4.3 0.0-8.0 % Basophils (%) (Auto) 0.8 0.0-5.0 % Neutrophils # (Auto) 4.5 1.8-7.7 K/uL Lymphocytes # (Auto) 6.1 H 1.0-4.8 K/uL Monocytes # (Auto) 0.6 0.1-1.0 K/uL Eosinophils # (Auto) 0.51 0.00-0.70 K/uL Basophils # (Auto) 0.10 0.00-0.20 K/uL Absolute Immature Granulocyte (auto 0.04 0-1 K/uL Nucleated Red Blood Cells 0.0 0.0-0.19 % Chemistry Labs: Test 03/18/25 16:48 Range/Units Sodium Level 143 136-145 mmol/L Potassium Level 3.6 3.5-5.1 mmol/L Chloride Level 108 101-111 mmol/L Carbon Dioxide Level 28 21-32 mmol/L Blood Urea Nitrogen 21 H 7-18 mg/dL Creatinine 0.9 0.5-1.3 mg/dL Glomerular Filtration Rate Calc 85 >90 mL/min Random Glucose 157 H 70-105 mg/dL Total Calcium 8.6 8.5-10.1 mg/dL DIAGNOSTICS / RADIOLOGY RESULTS: [ ] PLAN : Admit patient medical floor Ceftriaxone2 g IV daily Infectious Disease specialist consulted Obtain urine culture Accu-Cheks a.c. HS Insulin coverage per sliding scale Obtain hemoglobin A1c NEURO: Minimize central acting medications as possible. Maintain fall precautions, adequate lighting during the day PULMONARY: Supplemental 02 as needed. Maintain aspiration precautions at all times CARDIOVASCULAR: Follow hemodynamics. Vital signs per facility protocol GI & NUTRITION: Continue with nutritional support. Continue stool softeners and laxatives as needed. KIDNEYS & ELECTROLYTES: Strict monitoring of intake, output and overall fluid balance. Avoid nephrotoxic medications to the extent possible. Medications to be dosed according to renal function. Monitor electrolytes and replace as needed ENDOCRINE: Maintain blood glucose between 100-180 at all times. Hypoglycemia protocol in place INFECTIOUS DISEASE: Trend temperature, WBC and procalcitonin level Follow cultures, deescalate antibiotics as soon as possible. Panculture if new onset fever Ceftriaxone 2 g IV daily Urine culture ONCOLOGY/HEMATOLOGY/COAGULATION: Monitor for s/s of bleeding Monitor hemoglobin, coagulation studies as needed SKIN: Pressure ulcer prevention per facility protocol Specialty mattress ORTHO/REHAB: Continue PT/OT Prophylaxis: Continue GI and DVT prophylaxis Code Status: Full Resuscitation Disposition: TBD Other: Case discussed with Dr.RODRIGUEZ KERNS, AND THE ABOVE PLAN WAS FORMULATED. ABRAHAM ADAMS Mar 18, 2025 20:08
[2025-03-18] MEDS: 0.9%NACL 1000ML 1,000 ML IV SCH (20:46)
[2025-03-18] MEDS: FAMOTIDINE 20MG TAB PO SCH (21:29)
--- NOTE | 2025-03-18 21:45 | NUR ---
ADMIT PT ADMITTED TO ROOM 316, AAOX4. DENIES ANY PAINS AT THIS TIME. NO DISTRESS NOTED. ADMISSION CARE DONE. ADMISSION V/S MONITORED, STABLE. ADMISSION ASSESSMENT DONE, PLEASE REFER TO CHART. CONTINUED IVF OF NS FROM ER REGULATED AT 100CC/HR. UPDATED HOME MEDS IN THE COMPUTER. PLACED PT ON TELE MONITOR, # 41 NSR HR=70 BPM. PT HAS HX OF MDRO, PLACED ON CONTACT ISOLATION PER PROTOCOL. ORIENTED TO ROOM AND UNIT. IN FOR MORE CARE AND MANAGEMENT.
[2025-03-18 21:55] VITALS: O2SAT 98
[2025-03-18 22:00] VITALS: BP 141/74; PULSE 74; RESP 17; TEMP 98
[2025-03-19 03:37] VITALS: BP 144/74; PULSE 71; RESP 17; TEMP 98.2
--- NOTE | 2025-03-19 05:26 | NUR ---
ROUNDS PT STILL FAIRLY ASLEEP WITH RESPIRATIONS EVEN AND UNLABORED. KEPT UNDISTURBED FOR NOW. CALL LIGHT WITHIN REACH. FOR MORE CARE.
[2025-03-19 08:00] VITALS: BP 117/54; PULSE 71; RESP 16; TEMP 98.3; O2SAT 96
[2025-03-19 08:55] LABS: IMMATURE GRANULOCYTE ABSOLUTE 0.03 K/uL (0-1); NUCLEATED RED BLOOD CELLS 0.0 % (0.0-0.19); PLATELET COUNT (AUTO) 169 K/uL (130-400); RED BLOOD CELL COUNT(AUTO) 3.08 MIL/uL (4.50-6.20); RED CELL DISTRIBUTION WIDTH 14.2 % (11.0-15.5); WHITE BLOOD COUNT (AUTO) 11.5 K/uL (4.8-10.8)
[2025-03-19 09:12] LABS: ASPARTATE AMINOTRANSFERASE 16.0 U/L (10-37); CREATININE 0.8 mg/dL (0.5-1.3); GLOMERULAR FILTR. RATE CALC 88.0 mL/min (>90); GLUCOSE,RANDOM 133.0 mg/dL (70-105); SODIUM SERUM 145.0 mmol/L (136-145); TOTAL PROTEIN, SERUM 5.8 g/dL (6.0-8.3); UREA NITROGEN, BLOOD 15.0 mg/dL (7-18)
--- NOTE | 2025-03-19 09:42 | PN ---
[facility] PROGRESS NOTE Date Patient Seen: Mar 19, 2025 Time of Visit: 09:42 Supervising Physician: Dr. Almonte Primary Care Physician: DR. ELY GREER Outpatient Specialists: [ ] Inpatient Consults: Dr. Melara (Infectious Disease) PROBLEM LIST: Acute complicated cystitis, failed outpatient treatment History of MDRO cystitis Urine retention Diabetes mellitus type 2 with uncontrolled hyperglycemia BPH INTERVAL HISTORY: Patient was seen at bedside today. He's currently on Rocephin. However, infectious disease has upgraded the patient to Merrem given past susceptibilities of ESBL on culture. Patient failed outpatient therapy, still with complaints of mild urinary retention. Nursing staff advised to continue bladder scans at this time. Orders will be placed for Knapp catheter. Patient will be set up with outpatient IV antibiotics for ESBL treatment via infectious disease. And patient can follow up with urology as outpatient. We will administer Tamsulosin and send the patient with a prescription upon discharge. As the patient appears to have an enlarged bladder on CT scan, and further recommendations to come. Plan Continue antibiotics Follow Infectious Disease recommendations Plan for outpatient IV antibiotics Knapp catheter patient continues with urine retention Start tamsulosin REVIEW OF SYSTEMS: 12 point ROS reviewed with patient. Pertinent positives mentioned above. Otherwise negative. PHYSICAL EXAM: GENERAL: alert, weak, awake oriented x 3 HEENT: EOMI, Sclera non icteric, moist mucosa NECK: Supple, no JVD, trachea midline LUNGS: Clear breath sounds bilaterally. No wheezes HEART: Regular rate and rhythm. Normal S1 and S2, without murmurs ABD: Abdomen soft, nontender. Bowel sounds present EXT: No clubbing cyanosis or edema NEURO: Alert and oriented to person, follows commands Vital Signs (last 8hr) Date Time Temp Pulse Resp B/P (MAP) Pulse Ox O2 Delivery O2 Flow Rate FiO2 03/19/25 08:00 98.2 71 16 117/54 94 Room Air 03/19/25 03:37 98.2 71 17 144/74 98 Room Air 21 LABS: Hematology Labs: Test 03/19/25 08:50 03/18/25 16:48 Range/Units White Blood Count 11.5 H 4.8-10.8 K/uL Red Blood Count 3.08 L 4.50-6.20 MIL/uL Hemoglobin 8.8 L 14.0-18.0 g/dL Hematocrit 27.8 L 42-54 % Mean Corpuscular Volume 90.3 79-99 fL Mean Corpuscular Hemoglobin 28.6 27.0-33.0 pg Mean Corpuscular Hemoglobin Concent 31.7 L 32.0-36.0 g/dL Red Cell Distribution Width 14.2 11.0-15.5 % Platelet Count 169 130-400 K/uL Mean Platelet Volume 9.6 7.5-10.5 fL Immature Granulocyte % (Auto) 0.3 0-1 % Neutrophils (%) (Auto) 41.6 40.0-77.0 % Lymphocytes (%) (Auto) 45.1 21.0-51.0 % Monocytes (%) (Auto) 7.0 3.0-13.0 % Eosinophils (%) (Auto) 5.2 0.0-8.0 % Basophils (%) (Auto) 0.8 0.0-5.0 % Neutrophils # (Auto) 4.8 1.8-7.7 K/uL Lymphocytes # (Auto) 5.2 H 1.0-4.8 K/uL Monocytes # (Auto) 0.8 0.1-1.0 K/uL Eosinophils # (Auto) 0.60 0.00-0.70 K/uL Basophils # (Auto) 0.09 0.00-0.20 K/uL Absolute Immature Granulocyte (auto 0.03 0-1 K/uL Nucleated Red Blood Cells 0.0 0.0-0.19 % Chemistry Labs: Test 03/19/25 08:50 03/19/25 05:00 03/18/25 16:48 Range/Units Sodium Level 145 136-145 mmol/L Potassium Level 2.9 *L 3.5-5.1 mmol/L Chloride Level 110 101-111 mmol/L Carbon Dioxide Level 26 21-32 mmol/L Blood Urea Nitrogen 15 7-18 mg/dL Creatinine 0.8 0.5-1.3 mg/dL Glomerular Filtration Rate Calc 88 >90 mL/min Random Glucose 133 H 70-105 mg/dL Total Calcium 8.3 L 8.5-10.1 mg/dL Magnesium Level 1.60 L 1.80-2.40 mg/dL Total Bilirubin 0.5 0.2-1.0 mg/dL Aspartate Amino Transf (AST/SGOT) 16 10-37 U/L Alanine Aminotransferase (ALT/SGPT) 20 12-78 U/L Alkaline Phosphatase 72 50-136 U/L Total Protein 5.8 L 6.0-8.3 g/dL Albumin 2.8 L 3.5-5.0 g/dL Whole Blood Glucose 104 70-110 MG/DL Hemoglobin A1c 5.9 4.0-6.0 % Estimated Average Glucose (eAG) 123 70-126 mg/dL DIAGNOSTICS / RADIOLOGY RESULTS: [ ] PLAN : Admit patient medical floor Ceftriaxone2 g IV daily Infectious Disease specialist consulted Obtain urine culture Accu-Cheks a.c. HS Insulin coverage per sliding scale Obtain hemoglobin A1c NEURO: Minimize central acting medications as possible. Maintain fall precautions, adequate lighting during the day PULMONARY: Supplemental 02 as needed. Maintain aspiration precautions at all times CARDIOVASCULAR: Follow hemodynamics. Vital signs per facility protocol GI & NUTRITION: Continue with nutritional support. Continue stool softeners and laxatives as needed. KIDNEYS & ELECTROLYTES: Strict monitoring of intake, output and overall fluid balance. Avoid nephrotoxic medications to the extent possible. Medications to be dosed according to renal function. Monitor electrolytes and replace as needed ENDOCRINE: Maintain blood glucose between 100-180 at all times. Hypoglycemia protocol in place INFECTIOUS DISEASE: Trend temperature, WBC and procalcitonin level Follow cultures, deescalate antibiotics as soon as possible. Panculture if new onset fever Ceftriaxone 2 g IV daily Urine culture ONCOLOGY/HEMATOLOGY/COAGULATION: Monitor for s/s of bleeding Monitor hemoglobin, coagulation studies as needed SKIN: Pressure ulcer prevention per facility protocol Specialty mattress ORTHO/REHAB: Continue PT/OT Prophylaxis: Continue GI and DVT prophylaxis Code Status: Full Resuscitation Disposition: TBD Other: Case discussed with Dr.RODRIGUEZ KERNS, AND THE ABOVE PLAN WAS FORMULATED. EVELIN PINEDA PAC Mar 19, 2025 09:42
[2025-03-19] MEDS ORDERED: PHARMACY COMMUNICATION MISC SCH (10:00)
[2025-03-19] MEDS ORDERED: PoTASSium chl 10% ELIXIR 20MEQ 20 MEQ/15 ML UDCUP PO PRN (10:00)
[2025-03-19] MEDS: PoTASSium chloRIDE 20MEQ ER 20 MEQ ERTAB PO PRN (10:13)
[2025-03-19] MEDS: MEROPENEM 1GM 1 GM VIAL IVPB SCH (10:14)
[2025-03-19 12:00] VITALS: BP 117/57; PULSE 70; RESP 18; TEMP 98.5
--- NOTE | 2025-03-19 14:38 | NUR ---
DCP: INITIAL ASSESSMENT Patient lives alone. He has no home services. Patient has BPM, cane, and wheelchair at home. He states he is able to complete ADLs and drives. PCP is Dr. Nicol Beck. [facility]acy [facility]. Patient voiced no safety concerns regarding returning home and states he has no difficulty with housing or buying food. DCP is home.
[2025-03-19 16:00] VITALS: BP 108/56; PULSE 74; RESP 18; TEMP 98.7
--- NOTE | 2025-03-19 18:39 | CONS ---
INFECTIOUS DISEASE CONSULTATION REFERRING PHYSICIAN: Mellissa Gonzales NP. REASON FOR CONSULTATION: UTI and antibiotic management. HISTORY OF PRESENT ILLNESS: An 84-year-old male with history of UTI, diabetes mellitus, hypertension, presented to the hospital with dysuria and urinary frequency. The patient has no fever or chills. No hematuria. In the Emergency Room, the patient was found with urinalysis showing too numerous wbc's to count. The patient denied cough or shortness of breath, no palpitations or orthopnea. The patient previously treated for UTI. PAST MEDICAL HISTORY: * Diabetes mellitus. * Hypertension. * Atrial fibrillation. * BPH. * UTI. * Infection with multidrug resistant organisms. PAST SURGICAL HISTORY: * AICD surgery. * surgery. ALLERGIES: No known drug allergies. CURRENT MEDICATIONS: Reviewed. SOCIAL HISTORY: . No alcohol, tobacco or illicit drug use. FAMILY HISTORY: Positive for diabetes mellitus. REVIEW OF SYSTEMS: Greater than 10 systems were reviewed. Negative except as documented above. PHYSICAL EXAMINATION: GENERAL: An elderly male, awake. VITAL SIGNS: Temperature 98.2, pulse 71, respirations 16, BP 117/54. EYES: No icterus. Pupils equal and reactive. HENT: No oral thrush seen. Moist oral mucosa. NECK: Supple. No JVD or thyromegaly. LUNGS: Good air entry. No rales, no rhonchi. CARDIOVASCULAR SYSTEM: S1 and S2. Regular. No murmur heard. ABDOMEN: Full, soft, nontender. Bowel sound is present. CENTRAL NERVOUS SYSTEM: Awake, alert, oriented x 3. No focal deficits. SKIN: No rashes, no itchiness. LYMPHATIC: No peripheral lymphadenopathy. BACK: No deformity, no pressure ulcer. MUSCULOSKELETAL: No joint swelling, erythema or tenderness. LABS: Sodium 145, potassium 2.9, BUN 15, creatinine 0.8. WBC 11.5, hemoglobin , platelets 169. Urinalysis wbc's too numerous to count. Urine culture pending. ASSESSMENT: An 84-year-old male presented with dysuria and urinary frequency. Current problems include: * Recurrent UTI. * Infection with multidrug resistant organisms. * Diabetes mellitus. * Hypertension. * Atrial fibrillation. * Hypokalemia. PLAN: * Discontinue ceftriaxone. * Start patient on meropenem. * Continue antidiabetic. * Continue antiarrhythmic agent. * Continue DVT prophylaxis. * Continue nutritional support. * Monitor electrolytes and correct as needed. Thank you for allowing me to participate in the care of this patient. TID: [id number] RECEIPT: [id number] MTDD
[2025-03-19 20:00] VITALS: BP 117/57; PULSE 70; RESP 18; TEMP 98.5
[2025-03-19 20:26] VITALS: O2SAT 98
[2025-03-19] MEDS: MAGNESIUM 2GM PREMIX 50ML 50 ML IV PRN (20:26)
--- NOTE | 2025-03-19 20:26 | NUR ---
MEDS SHIFT ASSESSMENT DONE, PLEASE REFER TO CHART. DUE MEDS ADMINISTERED, TOLERATED WELL. KEPT RESTED AND COMFORTABLE IN BED. CALL LIGHT WITHIN REACH.
[2025-03-19] MEDS ORDERED: ARTIFICAL TEARS SOL 15 ML OP PRN (21:00)
[2025-03-20] VITALS (10 sets, daily range): BP systolic 125–152; BP diastolic 61–74; PULSE 70–75; RESP 17–18; TEMP 97.6–98.5; O2SAT 99
--- NOTE | 2025-03-20 03:49 | HMCIMG ---
EXAM: CT Abdomen and Pelvis without Intravenous Contrast CLINICAL HISTORY: Cystitis. A prior US renal sonogram dated 02/10/2025 was suspicious for cystitis. The current imaging has been performed to evaluate further. TECHNIQUE: Axial computed tomography images of the abdomen and pelvis without intravenous contrast. Dose reduction technique was used including one or more of the following: automated exposure control, adjustment of mA and kV according to patient size, and/or iterative reconstruction. Total exam DLP 592.7. Total CTDI volume 10.90. CONTRAST: Without. COMPARISON: US renal sonogram dated 02/10/2025. FINDINGS: LUNG BASES: Tip of pacemaker electrodes are visualized in the lumen of the right heart Chambers in the coronary sinus. There is small pericardial effusion. No basilar airspace consolidation or pleural effusion. LIVER: The liver is enlarged measuring 18 cm. Unremarkable. GALLBLADDER AND BILE DUCTS: Unremarkable. No calcified stone. No ductal dilation. PANCREAS: Unremarkable. SPLEEN: The spleen measures 10 cm. There is a calcific density nodule in the spleen, suggestive of calcified granuloma. There is a splenule measuring 1.8 cm. ADRENAL GLANDS: Right adrenal unremarkable. Left adrenal unremarkable. KIDNEYS, URETERS, AND BLADDER: Right renal upper pole and left renal lower polar cortical scarring are present. There is diffuse thickening of the urinary bladder wall measuring up to 1.3 cm with perivesical fat stranding. No vesical calculus. No hydronephrosis or nephrolithiasis. No ureteral calculi. STOMACH AND BOWEL: No obstruction. No wall thickening. No CT evidence of colitis or acute diverticulitis. Perirectal nodules are also present, the largest at 3 o'clock position measuring 1 cm. APPENDIX: The appendix is not distinctly visualized. PERITONEUM: No free fluid. No free air. LYMPH NODES: There are numerous, enlarged retroperitoneal lymph nodes in the preaortic, para-aortic, aortocaval, paracaval regions, the largest in the aortocaval region measuring 3 x 2.8 cm. Extensive mesenteric lymph nodes are also present, measuring up to 2.6 cm. There are enlarged bilateral inguinal, bilateral external, common iliac lymph nodes, the largest left inguinal lymph node measures 3.5 cm x 2.5 cm. REPRODUCTIVE: There is moderate prostatomegaly with periurethral calcifications. VASCULATURE: The abdominal aorta demonstrates minimal atheromatous calcification without aneurysm or dissection. ABDOMINAL WALL AND SOFT TISSUES: Unremarkable. BONES: There are degenerative changes in the spine. Small central disc protrusion at L4-L5 level causing thecal sac indentation. No fracture or suspicious osseous abnormality. IMPRESSION: 1. Acute cystitis. This is similar to the prior US renal dated February 10, 2025. 2. Extensive lymphadenopathy in the abdomen and pelvis, including retroperitoneal, mesenteric, iliac, and inguinal regions. This may be neoplastic / inflammatory in etiology. Recommend tissue diagnosis and CT PET. 3. Perirectal nodules, the largest at 3 o'clock position measuring 1 cm. No rectal wall thickening . 4. Hepatomegaly. /[place]
--- NOTE | 2025-03-20 05:10 | NUR ---
MEDS PT SLEPT AT INTERVALS DURING THE SHIFT. NO DISTRESS NOTED. KEPT RESTED IN BED. CALL LIGHT WITHIN REACH. FOR MORE CARE.
[2025-03-20 06:03] LABS: IMMATURE GRANULOCYTE ABSOLUTE 0.07 K/uL (0-1); NUCLEATED RED BLOOD CELLS 0.0 % (0.0-0.19); PLATELET COUNT (AUTO) 183 K/uL (130-400); RED BLOOD CELL COUNT(AUTO) 3.17 MIL/uL (4.50-6.20); RED CELL DISTRIBUTION WIDTH 14.3 % (11.0-15.5); WHITE BLOOD COUNT (AUTO) 8.6 K/uL (4.8-10.8)
[2025-03-20 06:27] LABS: ASPARTATE AMINOTRANSFERASE 19.0 U/L (10-37); CREATININE 0.8 mg/dL (0.5-1.3); GLOMERULAR FILTR. RATE CALC 88.0 mL/min (>90); GLUCOSE,RANDOM 114.0 mg/dL (70-105); SODIUM SERUM 143.0 mmol/L (136-145); TOTAL PROTEIN, SERUM 5.9 g/dL (6.0-8.3); UREA NITROGEN, BLOOD 15.0 mg/dL (7-18)
--- NOTE | 2025-03-20 09:42 | PN ---
[facility] PROGRESS NOTE Date Patient Seen: Mar 20, 2025 Time of Visit: 09:42 Supervising Physician: Dr. Almonte Primary Care Physician: DR. ELY GREER Outpatient Specialists: [ ] Inpatient Consults: Dr. Melara (Infectious Disease) PROBLEM LIST: Acute complicated cystitis, failed outpatient treatment -ESBL Klebsiella oxytoca on culture History of MDRO cystitis Urine retention, resolved Diabetes mellitus type 2 with uncontrolled hyperglycemia BPH INTERVAL HISTORY: Patient evaluated at bedside, family present at the time. Patient is urinating freely at this time, denies any urinary retention, no residuals on bladder scan. He continues on meropenem at this time for ESBL Klebsiella oxytocia on culture. Infectious Disease on board. Patient pending midline placement today in order to initiate outpatient IV antibiotics, case management currently working on disposition. No further complaints at this time, pending discharge in the next 24 hours. Plan Continue antibiotics Follow Infectious Disease recommendations Plan for outpatient IV antibiotics Start tamsulosin REVIEW OF SYSTEMS: 12 point ROS reviewed with patient. Pertinent positives mentioned above. Otherwise negative. PHYSICAL EXAM: GENERAL: alert, weak, awake oriented x 3 HEENT: EOMI, Sclera non icteric, moist mucosa NECK: Supple, no JVD, trachea midline LUNGS: Clear breath sounds bilaterally. No wheezes HEART: Regular rate and rhythm. Normal S1 and S2, without murmurs ABD: Abdomen soft, nontender. Bowel sounds present EXT: No clubbing cyanosis or edema NEURO: Alert and oriented to person, follows commands Vital Signs (last 8hr) Date Time Temp Pulse Resp B/P (MAP) Pulse Ox O2 Delivery O2 Flow Rate FiO2 03/20/25 07:54 97.9 73 17 139/74 95 Room Air 03/20/25 04:00 98.1 70 18 152/72 97 Nasal Cannula LABS: Hematology Labs: Test 03/20/25 05:39 03/18/25 16:48 Range/Units White Blood Count 8.6 # 4.8-10.8 K/uL Red Blood Count 3.17 L 4.50-6.20 MIL/uL Hemoglobin 9.3 L 14.0-18.0 g/dL Hematocrit 28.7 L 42-54 % Mean Corpuscular Volume 90.5 79-99 fL Mean Corpuscular Hemoglobin 29.3 27.0-33.0 pg Mean Corpuscular Hemoglobin Concent 32.4 32.0-36.0 g/dL Red Cell Distribution Width 14.3 11.0-15.5 % Platelet Count 183 130-400 K/uL Mean Platelet Volume 10.0 7.5-10.5 fL Immature Granulocyte % (Auto) 0.8 0-1 % Neutrophils (%) (Auto) 62.3 40.0-77.0 % Lymphocytes (%) (Auto) 22.6 21.0-51.0 % Monocytes (%) (Auto) 7.8 3.0-13.0 % Eosinophils (%) (Auto) 5.7 0.0-8.0 % Basophils (%) (Auto) 0.8 0.0-5.0 % Neutrophils # (Auto) 5.4 1.8-7.7 K/uL Lymphocytes # (Auto) 2.0 1.0-4.8 K/uL Monocytes # (Auto) 0.7 0.1-1.0 K/uL Eosinophils # (Auto) 0.49 0.00-0.70 K/uL Basophils # (Auto) 0.07 0.00-0.20 K/uL Absolute Immature Granulocyte (auto 0.07 0-1 K/uL Nucleated Red Blood Cells 0.0 0.0-0.19 % Chemistry Labs: Test 03/20/25 05:39 03/20/25 05:04 03/18/25 16:48 Range/Units Sodium Level 143 136-145 mmol/L Potassium Level 4.7 3.5-5.1 mmol/L Chloride Level 111 101-111 mmol/L Carbon Dioxide Level 25 21-32 mmol/L Blood Urea Nitrogen 15 7-18 mg/dL Creatinine 0.8 0.5-1.3 mg/dL Glomerular Filtration Rate Calc 88 >90 mL/min Random Glucose 114 H 70-105 mg/dL Total Calcium 8.3 L 8.5-10.1 mg/dL Magnesium Level 2.10 1.80-2.40 mg/dL Total Bilirubin 0.4 0.2-1.0 mg/dL Aspartate Amino Transf (AST/SGOT) 19 10-37 U/L Alanine Aminotransferase (ALT/SGPT) 25 # 12-78 U/L Alkaline Phosphatase 80 50-136 U/L Total Protein 5.9 L 6.0-8.3 g/dL Albumin 2.9 L 3.5-5.0 g/dL Whole Blood Glucose 107 70-110 MG/DL Hemoglobin A1c 5.9 4.0-6.0 % Estimated Average Glucose (eAG) 123 70-126 mg/dL DIAGNOSTICS / RADIOLOGY RESULTS: [ ] PLAN : Admit patient medical floor Ceftriaxone2 g IV daily Infectious Disease specialist consulted Obtain urine culture Accu-Cheks a.c. HS Insulin coverage per sliding scale Obtain hemoglobin A1c NEURO: Minimize central acting medications as possible. Maintain fall precautions, adequate lighting during the day PULMONARY: Supplemental 02 as needed. Maintain aspiration precautions at all times CARDIOVASCULAR: Follow hemodynamics. Vital signs per facility protocol GI & NUTRITION: Continue with nutritional support. Continue stool softeners and laxatives as needed. KIDNEYS & ELECTROLYTES: Strict monitoring of intake, output and overall fluid balance. Avoid nephrotoxic medications to the extent possible. Medications to be dosed according to renal function. Monitor electrolytes and replace as needed ENDOCRINE: Maintain blood glucose between 100-180 at all times. Hypoglycemia protocol in place INFECTIOUS DISEASE: Trend temperature, WBC and procalcitonin level Follow cultures, deescalate antibiotics as soon as possible. Panculture if new onset fever Ceftriaxone 2 g IV daily Urine culture ONCOLOGY/HEMATOLOGY/COAGULATION: Monitor for s/s of bleeding Monitor hemoglobin, coagulation studies as needed SKIN: Pressure ulcer prevention per facility protocol Specialty mattress ORTHO/REHAB: Continue PT/OT Prophylaxis: Continue GI and DVT prophylaxis Code Status: Full Resuscitation Disposition: TBD Other: Case discussed with Dr.RODRIGUEZ KERNS, AND THE ABOVE PLAN WAS FORMULATED. EVELIN PINEDA PAC Mar 20, 2025 09:42
[2025-03-20 17:00] LABS: INR 1.12 (0.85-1.15)
--- NOTE | 2025-03-20 22:09 | PN ---
INFECTIOUS DISEASE PROGRESS NOTE Date of Service: Mar 20, 2025 SUBJECTIVE: [ ] PHYSICAL EXAM EYES: Anicteric. Pupils equal and reactive. HENT: No oral thrush seen, moist Oral mucosa NECK: Supple, no JVD or thyromegaly. LUNGS: Good air entry. No rales, no rhonchi. CARDIOVASCULAR: S1, S2 regular. No murmur heard. ABDOMEN: Soft, non tender, bowel sounds present, no organomegaly CENTRAL NERVOUS SYSTEM: Awake, alert, oriented x 3. No focal deficits. SKIN: No rashes, no swelling. LYMPHATICS: No peripheral lymphadenopathy MUSCULOSKELETAL: No joint swelling, erythema or tenderness. EXTREMITIES: No cyanosis or clubbing BACK: No deformity, no pressure ulcer. GENITOURINARY: No dysuria or hematuria Vital Sign (Last 12 Hours) 03/20/25 03/20/25 03/20/25 03/20/25 11:25 15:30 20:01 20:50 Temp 98.1 98.1 97.5 Pulse 73 71 75 75 Resp 17 17 18 B/P (MAP) 130/61 125/61 138/70 Pulse Ox 98 98 98 O2 Delivery Room Air Room Air Room Air Intake & Output (last 24hrs) 03/19/25 03/19/25 03/20/25 15:00 23:00 07:00 Intake Total 150 ml 1210.0 ml Output Total 100 ml 400 ml Balance 50 ml 810.0 ml LABS: Laboratory: Test 03/20/25 20:22 03/20/25 16:38 03/20/25 05:39 Range/Units Whole Blood Glucose 112 H 70-110 MG/DL Prothrombin Time 11.7 H 9.6-11.6 SEC Prothromb Time International Ratio 1.12 0.85-1.15 Activated Partial Thromboplast Time 30.9 26.3-35.5 SEC White Blood Count 8.6 # 4.8-10.8 K/uL Red Blood Count 3.17 L 4.50-6.20 MIL/uL Hemoglobin 9.3 L 14.0-18.0 g/dL Hematocrit 28.7 L 42-54 % Mean Corpuscular Volume 90.5 79-99 fL Mean Corpuscular Hemoglobin 29.3 27.0-33.0 pg Mean Corpuscular Hemoglobin Concent 32.4 32.0-36.0 g/dL Red Cell Distribution Width 14.3 11.0-15.5 % Platelet Count 183 130-400 K/uL Mean Platelet Volume 10.0 7.5-10.5 fL Immature Granulocyte % (Auto) 0.8 0-1 % Neutrophils (%) (Auto) 62.3 40.0-77.0 % Lymphocytes (%) (Auto) 22.6 21.0-51.0 % Monocytes (%) (Auto) 7.8 3.0-13.0 % Eosinophils (%) (Auto) 5.7 0.0-8.0 % Basophils (%) (Auto) 0.8 0.0-5.0 % Neutrophils # (Auto) 5.4 1.8-7.7 K/uL Lymphocytes # (Auto) 2.0 1.0-4.8 K/uL Monocytes # (Auto) 0.7 0.1-1.0 K/uL Eosinophils # (Auto) 0.49 0.00-0.70 K/uL Basophils # (Auto) 0.07 0.00-0.20 K/uL Absolute Immature Granulocyte (auto 0.07 0-1 K/uL Nucleated Red Blood Cells 0.0 0.0-0.19 % Sodium Level 143 136-145 mmol/L Potassium Level 4.7 3.5-5.1 mmol/L Chloride Level 111 101-111 mmol/L Carbon Dioxide Level 25 21-32 mmol/L Blood Urea Nitrogen 15 7-18 mg/dL Creatinine 0.8 0.5-1.3 mg/dL Glomerular Filtration Rate Calc 88 >90 mL/min Random Glucose 114 H 70-105 mg/dL Total Calcium 8.3 L 8.5-10.1 mg/dL Magnesium Level 2.10 1.80-2.40 mg/dL Total Bilirubin 0.4 0.2-1.0 mg/dL Aspartate Amino Transf (AST/SGOT) 19 10-37 U/L Alanine Aminotransferase (ALT/SGPT) 25 # 12-78 U/L Alkaline Phosphatase 80 50-136 U/L Total Protein 5.9 L 6.0-8.3 g/dL Albumin 2.9 L 3.5-5.0 g/dL DIAGNOSTICS / RADIOLOGY: PATIENT: JESSIE GÓMEZ ACCT: [id number] LOC: [facility] U: [id number] AGE/SX: 84/M ROOM: 316 RE03/18/[address]: LUIS F CHAVIRA MD : [id number] BED: 1 DIS: STATUS: ADM IN TLOC: --- --------- SPEC: [id number] LAURENT: 03/18/25 STATUS: COMP REQ: [id number] RECD: 03/19/[address]: BIENVENIDO YUSUF MD SOURCE: [facility]: 03/19/[address]: ZOEY GRAVES MD SPDESC: CLEAN CAT ORDERED: AERO ID & SENS COMMENTS: NOTIFIED NURSE AUREA CARRILLO ESBL ON 03/20/25 BY YANIRA AND FAXED TO [facility] Procedure Result Lidia Date-Time AEROBIC ID & SENSITIVITIES Final 03/20/25-0740 MRL EXTENDED SPECTRUM BETA-LACTAMASE ORGANISM IDENTIFIED. CRITICAL RESULT WAS CALLED BY SHEILA CHANDLER ON 03/20/25 AT 0736. CRITICAL VALUES WERE READ BACK AND ACKNOWLEDGED BY CHELSIE GARDNER ([facility] [place]) COLONY DESCRIPTION: DAY 1: COLONY COUNT: >100,000 CFU/ML GRAM NEGATIVE RODS IDENTIFICATION AND SENSITIVITY TO FOLLOW COMMENTS(R): ESBL KLEBSIELLA OXYTOCA K OXYTOCA M.I.C. RX --------- ---- AZTREONAM >16 ESBL CEFAZOLIN >16 R* CEFTAZIDIME >16 ESBL CEFTAZIDIME/AVIBACTAM <=8 S CEFTRIAXONE >2 ESBL CIPROFLOXACIN >2 R GENTAMICIN >8 R LEVOFLOXACIN >4 R NITROFURANTOIN <=32 S TOBRAMYCIN >8 R MEROPENEM <=1 S PIPERACILLIN/TAZOBACTAM 32 R TRIMETHOPRIM/SUFLAMETHOXAZOLE >2/38 R ASSESSMENT: Urinary tract infection with Klebsiella oxytoca. Infection with multidrug resistant organism. PLAN: Continue Meropenem. Place midline. Patient will need IV antibiotics for 14 days. Monitor electrolytes. This case was reviewed and discussed with my supervising physician Dr. Granados and the above assessment and plan was formulated and agreed upon. ATTESTATION BY PHYSICIAN I have seen and examined the patient. I reviewed the documentation, medical decision making, and treatment plan as noted by the mid-level provider above. I agree with the findings and plan of care. HEATHER GRANADOS MD, [facility] Mar 20, 2025 22:09
[2025-03-21 04:31] VITALS: BP 129/68; PULSE 70; RESP 18; TEMP 98.5
[2025-03-21 06:30] LABS: NUCLEATED RED BLOOD CELLS 0.0 % (0.0-0.19); PLATELET COUNT (AUTO) 169 K/uL (130-400); RED BLOOD CELL COUNT(AUTO) 3.12 MIL/uL (4.50-6.20); RED CELL DISTRIBUTION WIDTH 14.5 % (11.0-15.5); WHITE BLOOD COUNT (AUTO) 8.4 K/uL (4.8-10.8)
[2025-03-21 06:39] LABS: CREATININE 0.7 mg/dL (0.5-1.3); GLOMERULAR FILTR. RATE CALC 92.0 mL/min (>90); GLUCOSE,RANDOM 105.0 mg/dL (70-105); SODIUM SERUM 143.0 mmol/L (136-145); UREA NITROGEN, BLOOD 11.0 mg/dL (7-18)
[2025-03-21 08:00] VITALS: BP 121/55; PULSE 70; RESP 16; TEMP 98.2; O2SAT 96
--- NOTE | 2025-03-21 09:49 | PN ---
[facility] PROGRESS NOTE Date Patient Seen: Mar 21, 2025 Time of Visit: 09:49 Supervising Physician: [ ] Primary Care Physician: DR. ELY GREER Outpatient Specialists: [ ] Inpatient Consults: Dr. Melara (Infectious Disease) PROBLEM LIST: Acute complicated cystitis, failed outpatient treatment -ESBL Klebsiella oxytoca on culture History of MDRO cystitis Urine retention, resolved Diabetes mellitus type 2 with uncontrolled hyperglycemia BPH INTERVAL HISTORY: Patient evaluated at bedside, family present at the time. Patient is urinating freely at this time, denies any urinary retention, no residuals on bladder scan. He continues on meropenem at this time for ESBL Klebsiella oxytocia on culture. Infectious Disease on board. Patient pending midline placement today in order to initiate outpatient IV antibiotics, case management currently working on disposition. No further complaints at this time, pending discharge in the next 24 hours. Plan Continue antibiotics Follow Infectious Disease recommendations Plan for outpatient IV antibiotics Start tamsulosin REVIEW OF SYSTEMS: 12 point ROS reviewed with patient. Pertinent positives mentioned above. Otherwise negative. PHYSICAL EXAM: GENERAL: alert, weak, awake oriented x 3 HEENT: EOMI, Sclera non icteric, moist mucosa NECK: Supple, no JVD, trachea midline LUNGS: Clear breath sounds bilaterally. No wheezes HEART: Regular rate and rhythm. Normal S1 and S2, without murmurs ABD: Abdomen soft, nontender. Bowel sounds present EXT: No clubbing cyanosis or edema NEURO: Alert and oriented to person, follows commands Vital Signs (last 8hr) Date Time Temp Pulse Resp B/P (MAP) Pulse Ox O2 Delivery O2 Flow Rate FiO2 03/21/25 08:00 98.2 70 16 121/55 96 Room Air 03/21/25 04:31 98.4 70 18 129/68 96 Room Air LABS: Hematology Labs: Test 03/21/25 05:48 03/20/25 05:39 Range/Units White Blood Count 8.4 4.8-10.8 K/uL Red Blood Count 3.12 L 4.50-6.20 MIL/uL Hemoglobin 9.0 L 14.0-18.0 g/dL Hematocrit 29.6 L 42-54 % Mean Corpuscular Volume 94.9 79-99 fL Mean Corpuscular Hemoglobin 28.8 27.0-33.0 pg Mean Corpuscular Hemoglobin Concent 30.4 L 32.0-36.0 g/dL Red Cell Distribution Width 14.5 11.0-15.5 % Platelet Count 169 130-400 K/uL Mean Platelet Volume 9.9 7.5-10.5 fL Nucleated Red Blood Cells 0.0 0.0-0.19 % Red Blood Cell Morphology See comments Immature Granulocyte % (Auto) 0.8 0-1 % Neutrophils (%) (Auto) 62.3 40.0-77.0 % Lymphocytes (%) (Auto) 22.6 21.0-51.0 % Monocytes (%) (Auto) 7.8 3.0-13.0 % Eosinophils (%) (Auto) 5.7 0.0-8.0 % Basophils (%) (Auto) 0.8 0.0-5.0 % Neutrophils # (Auto) 5.4 1.8-7.7 K/uL Lymphocytes # (Auto) 2.0 1.0-4.8 K/uL Monocytes # (Auto) 0.7 0.1-1.0 K/uL Eosinophils # (Auto) 0.49 0.00-0.70 K/uL Basophils # (Auto) 0.07 0.00-0.20 K/uL Absolute Immature Granulocyte (auto 0.07 0-1 K/uL Chemistry Labs: Test 03/21/25 05:48 03/21/25 05:21 03/20/25 05:39 Range/Units Sodium Level 143 136-145 mmol/L Potassium Level 4.1 3.5-5.1 mmol/L Chloride Level 109 101-111 mmol/L Carbon Dioxide Level 27 21-32 mmol/L Blood Urea Nitrogen 11 7-18 mg/dL Creatinine 0.7 0.5-1.3 mg/dL Glomerular Filtration Rate Calc 92 >90 mL/min Random Glucose 105 70-105 mg/dL Total Calcium 8.2 L 8.5-10.1 mg/dL Whole Blood Glucose 112 H 70-110 MG/DL Magnesium Level 2.10 1.80-2.40 mg/dL Total Bilirubin 0.4 0.2-1.0 mg/dL Aspartate Amino Transf (AST/SGOT) 19 10-37 U/L Alanine Aminotransferase (ALT/SGPT) 25 # 12-78 U/L Alkaline Phosphatase 80 50-136 U/L Total Protein 5.9 L 6.0-8.3 g/dL Albumin 2.9 L 3.5-5.0 g/dL Coagulation Labs: Test 03/20/25 16:38 Range/Units Prothrombin Time 11.7 H 9.6-11.6 SEC Prothromb Time International Ratio 1.12 0.85-1.15 Activated Partial Thromboplast Time 30.9 26.3-35.5 SEC DIAGNOSTICS / RADIOLOGY RESULTS: [ ] PLAN : Admit patient medical floor Ceftriaxone2 g IV daily Infectious Disease specialist consulted Obtain urine culture Accu-Cheks a.c. HS Insulin coverage per sliding scale Obtain hemoglobin A1c NEURO: Minimize central acting medications as possible. Maintain fall precautions, adequate lighting during the day PULMONARY: Supplemental 02 as needed. Maintain aspiration precautions at all times CARDIOVASCULAR: Follow hemodynamics. Vital signs per facility protocol GI & NUTRITION: Continue with nutritional support. Continue stool softeners and laxatives as needed. KIDNEYS & ELECTROLYTES: Strict monitoring of intake, output and overall fluid balance. Avoid nephrotoxic medications to the extent possible. Medications to be dosed according to renal function. Monitor electrolytes and replace as needed ENDOCRINE: Maintain blood glucose between 100-180 at all times. Hypoglycemia protocol in place INFECTIOUS DISEASE: Trend temperature, WBC and procalcitonin level Follow cultures, deescalate antibiotics as soon as possible. Panculture if new onset fever Ceftriaxone 2 g IV daily Urine culture ONCOLOGY/HEMATOLOGY/COAGULATION: Monitor for s/s of bleeding Monitor hemoglobin, coagulation studies as needed SKIN: Pressure ulcer prevention per facility protocol Specialty mattress ORTHO/REHAB: Continue PT/OT Prophylaxis: Continue GI and DVT prophylaxis Code Status: Full Resuscitation Disposition: TBD Other: Case discussed with Dr.RODRIGUEZ KERNS, AND THE ABOVE PLAN WAS FORMULATED. EVELIN PINEDA PAC Mar 21, 2025 09:49
[2025-03-21 12:00] VITALS: BP 120/59; PULSE 70; RESP 17; TEMP 98
[2025-03-21 16:00] VITALS: BP 129/61; PULSE 80; RESP 18; TEMP 97.9
--- NOTE | 2025-03-21 18:12 | NUR ---
PATIENT DISCHARGED HOME ID BAND,IV AND TELE TRISHA REMOVED. DISCHARGE INSTRUCTIONS EXPLAINED AND GIVEN TO PATIENT. PATIENT VERBALIZED UNDERSTANDING. BELONGINGS PACKED AND TAKEN BY PATIENT. WHEELED DOWN TO PRIVATE CAR.
--- NOTE | 2025-03-21 21:04 | PN ---
INFECTIOUS DISEASE PROGRESS NOTE Date of Service: Mar 21, 2025 SUBJECTIVE: During rounding today patient was pending case management arrangement for outpatient IV antibiotics. PHYSICAL EXAM EYES: Anicteric. Pupils equal and reactive. HENT: No oral thrush seen, moist Oral mucosa NECK: Supple, no JVD or thyromegaly. LUNGS: Good air entry. No rales, no rhonchi. CARDIOVASCULAR: S1, S2 regular. No murmur heard. ABDOMEN: Soft, non tender, bowel sounds present, no organomegaly CENTRAL NERVOUS SYSTEM: Awake, alert, oriented x 3. No focal deficits. SKIN: No rashes, no swelling. LYMPHATICS: No peripheral lymphadenopathy MUSCULOSKELETAL: No joint swelling, erythema or tenderness. EXTREMITIES: No cyanosis or clubbing BACK: No deformity, no pressure ulcer. GENITOURINARY: No dysuria or hematuria Vital Sign (Last 12 Hours) 03/21/25 03/21/25 12:00 16:00 Temp 98.1 97.9 Pulse 70 80 Resp 17 18 B/P (MAP) 120/59 129/61 Pulse Ox 97 93 O2 Delivery Room Air Room Air Intake & Output (last 24hrs) 03/20/25 03/20/25 03/21/25 15:00 23:00 07:00 Intake Total 200 ml 160 ml Output Total 200 ml 100 ml Balance 0 ml 160 ml -100 ml LABS: Laboratory: Test 03/21/25 15:56 03/21/25 05:48 03/20/25 16:38 03/20/25 05:39 Range/Units Whole Blood Glucose 107 70-110 MG/DL White Blood Count 8.4 4.8-10.8 K/uL Red Blood Count 3.12 L 4.50-6.20 MIL/uL Hemoglobin 9.0 L 14.0-18.0 g/dL Hematocrit 29.6 L 42-54 % Mean Corpuscular Volume 94.9 79-99 fL Mean Corpuscular Hemoglobin 28.8 27.0-33.0 pg Mean Corpuscular Hemoglobin Concent 30.4 L 32.0-36.0 g/dL Red Cell Distribution Width 14.5 11.0-15.5 % Platelet Count 169 130-400 K/uL Mean Platelet Volume 9.9 7.5-10.5 fL Nucleated Red Blood Cells 0.0 0.0-0.19 % Red Blood Cell Morphology See comments Sodium Level 143 136-145 mmol/L Potassium Level 4.1 3.5-5.1 mmol/L Chloride Level 109 101-111 mmol/L Carbon Dioxide Level 27 21-32 mmol/L Blood Urea Nitrogen 11 7-18 mg/dL Creatinine 0.7 0.5-1.3 mg/dL Glomerular Filtration Rate Calc 92 >90 mL/min Random Glucose 105 70-105 mg/dL Total Calcium 8.2 L 8.5-10.1 mg/dL Prothrombin Time 11.7 H 9.6-11.6 SEC Prothromb Time International Ratio 1.12 0.85-1.15 Activated Partial Thromboplast Time 30.9 26.3-35.5 SEC Immature Granulocyte % (Auto) 0.8 0-1 % Neutrophils (%) (Auto) 62.3 40.0-77.0 % Lymphocytes (%) (Auto) 22.6 21.0-51.0 % Monocytes (%) (Auto) 7.8 3.0-13.0 % Eosinophils (%) (Auto) 5.7 0.0-8.0 % Basophils (%) (Auto) 0.8 0.0-5.0 % Neutrophils # (Auto) 5.4 1.8-7.7 K/uL Lymphocytes # (Auto) 2.0 1.0-4.8 K/uL Monocytes # (Auto) 0.7 0.1-1.0 K/uL Eosinophils # (Auto) 0.49 0.00-0.70 K/uL Basophils # (Auto) 0.07 0.00-0.20 K/uL Absolute Immature Granulocyte (auto 0.07 0-1 K/uL Magnesium Level 2.10 1.80-2.40 mg/dL Total Bilirubin 0.4 0.2-1.0 mg/dL Aspartate Amino Transf (AST/SGOT) 19 10-37 U/L Alanine Aminotransferase (ALT/SGPT) 25 # 12-78 U/L Alkaline Phosphatase 80 50-136 U/L Total Protein 5.9 L 6.0-8.3 g/dL Albumin 2.9 L 3.5-5.0 g/dL ASSESSMENT: Urinary tract infection with Klebsiella oxytoca. Infection with multidrug resistant organism. PLAN: Continue Meropenem. Place midline. Patient will need IV antibiotics for 14 days. Monitor electrolytes. This case was reviewed and discussed with my supervising physician Dr. Granados and the above assessment and plan was formulated and agreed upon. ATTESTATION BY PHYSICIAN I have seen and examined the patient. I reviewed the documentation, medical decision making, and treatment plan as noted by the mid-level provider above. I agree with the findings and plan of care. HEATHER GRANADOS MD, [facility] Mar 21, 2025 21:04
--- NOTE | 2025-03-21 22:41 | DS ---
[facility] DISCHARGE SUMMARY Date Patient Seen: Mar 21, 2025 Time of Visit: 22:39 Supervising Physician: Dr. Almonte Primary Care Physician: DR. ELY GREER Outpatient Specialists: [ ] Inpatient Consults: Dr. Melara (Infectious Disease) HOSPITAL COURSE: HPI (per admitting provider) Patient is a 84-year-old male with past medical history significant for diabetes type 2, BPH, atrial fibrillation on Eliquis, and a surgical history of AICD placement, right hand surgery, right inguinal hernia repair, presented to emergency department complaining of dysuria. Patient reports that she has been going frequently to the restroom and able to void small quantity of urine. Adrien villegas reports that the frequency of urination has been increased. In addition patient reports that she gets completed outpatient antibiotics for urinary tract infection with the Infectious Disease specialist . However, patient was not able to recall the name of antibiotic used. The review of the patient's chart shows that the patient was treated in the past for ESBL sensitive to ceftriaxone and Merrem. In the emergency department, patient received ceftriaxone1 g IV. In addition, Infectious Disease specialist has been consulted. Patient will be admitted to medical floor for further evaluation and treatment. The patient was treated for the following problems: patient was admitted for acute complicated cystitis, which failed outpatient treatment. On culture, patient was found to have ESBL, klebsiella ocytoca in the urine. He was initiated on merrem and a PICC line was placed. Patient was discharged today with appointment for [facility] for outpatient IV infusions for the next 12 days in order to complete a 14-day IV antibiotic regimen, as indicated for ESBL, klebsiella. 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 Pt hemodynamically stable and afebrile at time of discharge. PCP notified of p atients admission, hospital course and discharge. PHYSICAL EXAM: GENERAL: alert, weak, awake oriented x 3 HEENT: EOMI, Sclera non icteric, moist mucosa NECK: Supple, no JVD, trachea midline LUNGS: Clear breath sounds bilaterally. No wheezes HEART: Regular rate and rhythm. Normal S1 and S2, without murmurs ABD: Abdomen soft, nontender. Bowel sounds present EXT: No clubbing cyanosis or edema NEURO: Alert and oriented to person, follows commands FOLLOW-UP: Follow-up with PCP in 2-3 days RECOMMENDATIONS: See Discharge Instructions This case was seen and discussed with my supervising physician. More than 30 minutes spent on discharge process, including evaluation of the patient, discussion with nursing staff, medication reconciliation and follow-up appointments EVELIN PINEDA PAC Mar 21, 2025 22:41
== END 2025-03-21 18:00 | disposition home or self-care (01) | DRG 690 ==
LOC: EDH 15:58 → EDHIP 19:52 → 3CH 21:36
PROVIDERS: ADMIT Internal Medicine; ATTEND Internal Medicine
PROC: 05HY33Z Insertion of Infusion Device into Upper Vein, Percutaneous Approach (ICD-10-PCS; principal; 2025-03-20)
DX: N30.00 Acute cystitis without hematuria (principal); B96.1 Klebsiella pneumoniae [K. pneumoniae] as the cause of diseases classified elsewhere; Z79.01 Long term (current) use of anticoagulants; E11.65 Type 2 diabetes mellitus with hyperglycemia; I10 Essential (primary) hypertension; Z16.24 Resistance to multiple antibiotics; Z16.12 Extended spectrum beta lactamase (ESBL) resistance; E87.6 Hypokalemia; I48.91 Unspecified atrial fibrillation; N40.0 Benign prostatic hyperplasia without lower urinary tract symptoms; Z83.3 Family history of diabetes mellitus; Z95.810 Presence of automatic (implantable) cardiac defibrillator
CPT/HCPCS: 36415; 36556; 74176; 80048; 80053; 81001; 82948; 83036; 83735; 85025; 85027; 85610; 85730; 87086; 87186; 96374; 99285; C1894; G0378; J0696; J2185; J3475; J3480; J7030; C1750